=== PATIENT | male | born 1970 | race Caucasian/White ===

== ENCOUNTER 2018-10-02 10:00 | Emergency (ER) | payer MEDICAID, OTHER ==
[2018-10-02] MEDS ORDERED: Ketorolac 60 MG/2 ML SDV IM ONE (10:46)
--- NOTE | 2018-10-02 10:47 | EDM.PDOC ---
ED HPI GENERAL MEDICAL PROBLEM - General Chief Complaint: Lower Extremity Injury/Pain Stated Complaint: SLIPPED ON ICE Time Seen by Provider: 10/02/18 10:47 Source of Information: Reports: Patient History Limitations: Reports: No Limitations - History of Present Illness INITIAL COMMENTS - FREE TEXT/NARRATIVE: HISTORY AND PHYSICAL: History of present illness: Patient is a 48-year-old male here with complaint of left ankle pain. He states yesterday he fell on the ice landing on his bottom and left side. He states he has had trouble with his left ankle including achilles tendon strain, has been bothering him for 1 month but worse after falling yesterday. He is able to walk on it with pain. He takes tramadol for arthritis and states this isn't helping. Review of systems: As per history of present illness and below otherwise all systems reviewed and negative. Past medical history: As per history of present illness and as reviewed below otherwise noncontributory. Surgical history: As per history of present illness and as reviewed below otherwise noncontributory. Social history: No reported history of drug or alcohol abuse. Family history: As per history of present illness and as reviewed below otherwise noncontributory. Physical exam: General: Patient sitting comfortably in no acute distress and nontoxic appearing HEENT: Atraumatic, normocephalic, pupils reactive, negative for conjunctival pallor or scleral icterus, mucous membranes moist, throat clear, neck supple, nontender, trachea midline. No meningeal signs. Lungs: Clear to auscultation, breath sounds equal bilaterally, chest nontender. Heart: S1S2, regular, negative for clicks, rubs, or overt murmur. Abdomen: Soft, nondistended, nontender. Negative for masses or hepatosplenomegaly. Negative for costovertebral tenderness. Pelvis: Stable nontender. Genitourinary: Deferred. Rectal: Deferred. Extremities: No obvious deformity or swelling. Skin is intact. Pain to palpation of the left lateral malleolus and calcaneous. Flexion, extension, inversion, and eversion strength 5/5. Atraumatic, negative for cords or calf pain. Neurovascular unremarkable. Neuro: Awake, alert, oriented. Cranial nerves II through XII unremarkable. Cerebellum unremarkable. Motor and sensory unremarkable throughout. Exam nonfocal. Notes: Diagnostics: x-ray left ankle and foot Therapeutics: 60mg Toradol IM CAM boot Prescriptions: Osakis (#10) Impression: Left ankle pain/injury Plan: 1. Ice, elevate, and tylenol as needed. Osakis as needed for severe pain, do not take while driving as it may make you drowsy. 2. Follow up with primary care provider 3. Return to ED as needed as discussed Definitive disposition and diagnosis as appropriate pending reevaluation and review of above. left hip Pain Score (Numeric/FACES): 8 - Related Data Allergies Allergy/AdvReac Type Severity Reaction Status Date / Time ampicillin Allergy Facial Verified 10/02/18 10:06 Swelling Home Meds: Home Meds Hydrocodone/Acetaminophen [Osakis 5-325 Tablet] 1 each PO Q6H PRN #10 tablet 05/13 [Rx] traMADol HCl [Tramadol HCl] 50 mg PO TID 10/02/18 [History] Past Medical History HEENT History: Reports: Impaired Vision, Other (See Below) Other HEENT History: wears glasses Cardiovascular History: Reports: None Respiratory History: Reports: None Gastrointestinal History: Reports: Other (See Below) Genitourinary History: Reports: None Musculoskeletal History: Reports: None Neurological History: Reports: None Psychiatric History: Reports: None Endocrine/Metabolic History: Reports: None Hematologic History: Reports: None Immunologic History: Reports: None Oncologic (Cancer) History: Reports: None Dermatologic History: Reports: None - Past Surgical History Head Surgeries/Procedures: Reports: None HEENT Surgical History: Reports: None Cardiovascular Surgical History: Reports: None Respiratory Surgical History: Reports: None GI Surgical History: Reports: Bariatric Procedure, Hernia, Abdominal, Other ( See Below) Other GI Surgeries/Procedures: gastric resection Male Surgical History: Reports: None Endocrine Surgical History: Reports: None Neurological Surgical History: Reports: None Musculoskeletal Surgical History: Reports: None Oncologic Surgical History: Reports: None Dermatological Surgical History: Reports: None Social & Family History - Family History Family Medical History: Noncontributory - Tobacco Use Smoking Status *Q: Never Smoker Second Hand Smoke Exposure: No - Caffeine Use Caffeine Use: Reports: Soda - Recreational Drug Use Recreational Drug Use: No Review of Systems - Review of Systems Review Of Systems: ROS reveals no pertinent complaints other than HPI. ED EXAM, GENERAL - Physical Exam Exam: See Below (see dictation) Course - Vital Signs Last Recorded V/S: Last Vital Signs Temp 97.9 F 10/02/18 10:05 Pulse 71 10/02/18 10:05 Resp 16 10/02/18 10:05 BP 142/76 H 10/02/18 10:05 Pulse Ox 97 10/02/18 10:05 - Orders/Labs/Meds Meds: Medications Discontinued Medications Generic Name Dose Route Start Last Admin Trade Name Freq PRN Reason Stop Dose Admin Ketorolac Tromethamine 60 mg 10/02/18 10:46 10/02/18 11:40 Toradol IM 10/02/18 10:47 60 mg ONETIME ONE Administration Departure - Departure Time of Disposition: 12:21 Disposition: Home, Self-Care 01 Condition: Good Clinical Impression: Left ankle injury - Discharge Information Prescriptions: Hydrocodone/Acetaminophen [Osakis 5-325 Tablet] 1 each PO Q6H PRN #10 tablet PRN Reason: Pain (Severe 7-10) Instructions: Ankle Sprain, [id number] Referrals: María Waters [facility] [employer] [Primary Care Provider] - Forms: ED Department Discharge Additional Instructions: The following information is given to patients seen in the emergency department who are being discharged to home. This information is to outline your options for follow-up care. We provide all patients seen in our emergency department with a follow-up referral. The need for follow-up, as well as the timing and circumstances, are variable depending upon the specifics of your emergency department visit. If you don't have a primary care physician on staff, we will provide you with a referral. We always advise you to contact your personal physician following an emergency department visit to inform them of the circumstance of the visit and for follow-up with them and/or the need for any referrals to a consulting specialist. The emergency department will also refer you to a specialist when appropriate. This referral assures that you have the opportunity for follow-up care with a specialist. All of these measure are taken in an effort to provide you with optimal care, which includes your follow-up. Under all circumstances we always encourage you to contact your private physician who remains a resource for coordinating your care. When calling for follow-up care, please make the office aware that this follow-up is from your recent emergency room visit. If for any reason you are refused follow-up, please contact the [facility] at and asked to speak to the emergency department charge nurse. [address] [address] 1. Ice, elevate, and tylenol as needed. Osakis as needed for severe pain, do not take while driving as it may make you drowsy. 2. Follow up with primary care provider 3. Return to ED as needed as discussed
--- NOTE | 2018-10-02 11:52 | CR ---
EXAMINATION: Left foot and left ankle HISTORY: Pain COMPARISON: 07/26/2018 TECHNIQUE: 3 views of the left ankle and 2 views of the left foot FINDINGS: There is no acute osseous abnormality, dislocation, or fracture. Bone mineralization and joint spaces are preserved. There is a large plantar calcaneal and moderate Achilles calcaneal enthesophyte. Mild subchondral cystic change noted within the anterior tibia. Osteophyte formation is noted within the midfoot. IMPRESSION: 1. Moderate degenerative changes without acute findings.
[2018-10-02 12:38] VITALS: BP 139/88
== END 2018-10-02 12:37 | disposition home or self-care (01) ==
LOC: MW.ED 10:00
DX: S99.912A Unspecified injury of left ankle, initial encounter (principal); Z88.1 Allergy status to other antibiotic agents; W00.0XXA Fall on same level due to ice and snow, initial encounter
CPT/HCPCS: 73610; 73620; 96372; 99283; J1885